=== PATIENT | male | born 1940 | race Asian ===

== ENCOUNTER 2017-09-03 22:27 | Emergency (ER) | payer OTHER ==
[2017-09-03 23:31] LABS: BASOPHIL % 0.4 % (0-2)
[2017-09-03 23:35] LABS: PLATELET COUNT 79 x10^3mcL (130-400); RED CELL DISTRIBUTION WIDTH 15.5 % (11.5-14.5)
[2017-09-03 23:40] LABS: CARBON DIOXIDE 26.7 mmol/L (21-32); CHLORIDE SERUM 100 mmol/L (98-107); GLUCOSE SERUM 187 mg/dL (74-106); POTASSIUM SERUM 4.4 mmol/L (3.5-5.1); SODIUM SERUM 136 mmol/L (136-145)
[2017-09-03 23:53] LABS: ALKALINE PHOSPHATASE 152 U/L (46-116); ALT/SGPT 29 U/L (16-63); AST/SGOT 32 U/L (15-37); BILIRUBIN TOTAL 2.1 mg/dL (0.20-1.00); TOTAL PROTEIN, SERUM 7.6 g/dL (6.4-8.2)
[2017-09-03 23:55] LABS: ALBUMIN 3.3 g/dL (3.4-5.0)
[2017-09-04 02:59] VITALS: BP 136/72
== END 2017-09-04 02:30 | disposition short-term general hospital (02) ==
LOC: ED 22:27
PROVIDERS: Emergency Medicine
DX: S06.5X9A Traumatic subdural hemorrhage with loss of consciousness of unspecified duration, initial encounter (principal); I10 Essential (primary) hypertension; E11.9 Type 2 diabetes mellitus without complications; V49.9XXA Car occupant (driver) (passenger) injured in unspecified traffic accident, initial encounter; Y93.89 Activity, other specified; Y92.89 Other specified places as the place of occurrence of the external cause; Y99.8 Other external cause status
CPT/HCPCS: J1885; J2765; J3010; Q0092